=== PATIENT | male | born 1960 | race Caucasian/White ===

== ENCOUNTER 2018-12-09 09:48 | Day surgery (SDC) | payer OTHER ==
[~2018-12-09] VITALS: Ht 180.3 cm; Wt 72.8 kg
[2018-12-09] VITALS (8 sets, daily range): BP systolic 102–119; BP diastolic 65–80; PULSE 59–77; RESP 16–29; Ht 180.3 cm; Wt 72.8 kg
[~2018-12-09 09:48] MED LIST: CYCLOPENTOLATE 1% 2 ML OPH RIGHT EYE SCH; LORA1TAB54 PO; MOXIFLOXACIN 0.5% 3 ML OPH RIGHT EYE SCH; PHENYLephrine 2.5% 15 ML OPH RIGHT EYE SCH; PROPARACAINE 0.5% 15 ML OPH RIGHT EYE SCH; TROPICAMIDE 1% 15 ML OPH RIGHT EYE SCH; VIGA RIGHT EYE
[2018-12-09] MEDS ORDERED: MIDAZOLAM 1 MG/ML 2 ML INJ ONE (11:15)
--- NOTE | 2018-12-09 11:17 | PREAC ---
Date/Time of Note Date/Time of Note DATE: 12/09/18 TIME: 11:17 Anesthesia Eval and Record Evaluation Time Pre-Procedure Interview DATE: 12/09/18 TIME: 11:17 Age 58 Sex male NPO: 8 hrs Preoperative diagnosis RIGHT CATARACT Planned procedure RIGHT CATARACT EXTRACTION WITH IOL Past Medical History Past Medical History: None Surgery & Anesthesia Issues No known issue Meds Anticoagulation: No Beta Jean within 24 hr: No Reason Beta Jean not given: Pt. not on B-Jean Reported Medications Loratadine/Pseudoephedrine* (Claritin-D* 12 Hr) 5-120 Mg Tab.er.12h, 1 TAB PO Q12, #60 TAB.SA 12/09/18 Current Medications Proparacaine HCl (Alcaine 0.5%) 1 drop PRE-OP RIGHT EYE ; Start 12/09/18 at 06:00 Cyclopentolate HCl (Ak-Pentolate 1% Oph) 1 drop Q10 MIN X 3 RIGHT EYE ; Start 12/09/18 at 06:00 Phenylephrine HCl (Ak-Dilate 2.5%) 1 drop Q10 MIN X 3 RIGHT EYE ; Start 12/09/18 at 06:00 Tropicamide (Mydriacyl 1%) 1 drop Q10 MIN X3 RIGHT EYE ; Start 12/09/18 at 06:00 Moxifloxacin HCl (Vigamox) 1 drop Q10 MIN X 3 RIGHT EYE ; Start 12/09/18 at 06:00 Meds reviewed: Yes Allergies Coded Allergies: No Known Allergy (Unverified , 12/09/18) Allergies Reviewed: Yes Labs/Studies Labs Reviewed: Reviewed by anesthesiologist test: N/A Studies: ECG, CXR Pre-procedure Exam Last vitals Vital Signs Date Temp Pulse Resp B/P (MAP) Pulse Ox O2 O2 Flow FiO2 Time Delivery Rate 12/09/18 97.9 66 16 119/72 99 Room Air 11:02 (88) Airway: Adequate mouth opening Mallampati: Mallampati II Teeth: Normal Lung: Normal Heart: Normal ASA Physical Status ASA physical status: 1 Emergency: None Planned Anesthetic General/MAC: MAC Pre-operative Attestations Prior to commencing anesthesia and surgery, the patient was re-evaluated, there was verification of: *The patient's identity *The results of appropriate recent lab work and preoperative vital signs *The above evaluation not changing prior to induction *Anesthetic plan, risk benefits, alternative and complications discussed with patient/family; questions answered; patient/family understands, accepts and wishes to proceed. JOEL CARROLL Dec 09, 2018 11:17
[2018-12-09] MEDS ORDERED: BSS PLUS 500 ML + VANCO 10MG, GENT 4 MG, EPI 0.25 MG IRR SCH ×4 (12:30)
[2018-12-09] MEDS ORDERED: LIDOCAINE 1% (MPF) 10 ML INJ ONE (12:56)
[2018-12-09] MEDS ORDERED: NA HYALURONATE/CHONDROITIN 0.5 ML SYG ONE (12:56)
--- NOTE | 2018-12-09 14:13 | PAC ---
Date/Time of Note Date/Time of Note DATE: 12/09/18 TIME: 14:13 Post-Anesthesia Notes Post-Anesthesia Note Last documented vital signs Vital Signs Date Temp Pulse Resp B/P (MAP) Pulse Ox O2 O2 Flow FiO2 Time Delivery Rate 12/09/18 97.9 66 16 119/72 99 Room Air 11:02 (88) Activity: WNL Respiratory function: WNL Cardiovascular function: WNL Mental status: Baseline Pain reasonably controlled: Yes Hydration appropriate: Yes Nausea/Vomiting absent: Yes JOEL CARROLL Dec 09, 2018 14:13
--- NOTE | 2018-12-09 16:24 | OPR ---
Date/Time of Note Date/Time of Note DATE: 12/09/18 TIME: 16:22 Operative Report Free Text/Dictation OPERATIVE SUMMARY Pre op dx- cataract right eye post op dx -same SURGEON - samir frias EBL; minimal PROCEDURE; cataract removal by phakoemulsification with intraocular lens implant RIGHT eye intraocular lens implant: b&l [id number] +19.50d anaesthesia: topical, mac, iv sedation complications: none PROCEDURE NOTE A full discussion with pt regarding alternatives, risks, benefits and possible complications were discussed with the pt. including loss of vision, loss of the eye, infection, rd, glaucoma, hypotony, irregular ocular anatomy, wound leak, displacement of intraocular lens, improper IOL power and other problems. also risks of anaeshesia including brain damage, stroke, coma and . the pt appeared to understand and decided to proceed with the surgery. pt was prepped and draped in ususal manner for intraocular surgery. two stab incisions were made at 12 and 6 oclock postion. intraocular pf lidcaine was instilled. a keratome was then used to enter the eye at the temporal limbus. a curved cystotome on viscoelastic was used to create a curvilinear capsulorhexis. the flap was removed with utrata forcepts. hydrodilenation and hydrodisection was done with bss. using the divide an conquer method, the lens nucleus was rem jerome. bimanual irrigtion and suction was then use to remove the cortex. the capsule was inflated with viscoelastic and the lens was injected into the capsular bag. the proper orientation of the lens was confirmed. the lens was rotated 360 degree to assure proper capsular placement. the viscoelastic was removed, and 10-0 interrupted sutures secured the wound. the wound was checked f or leaks and none were found. pt tolerated procedure wel. no complications were encounterd. to post ananesthesia in good condition. MD LILLY Hyman WARREN J MD Dec 09, 2018 16:24
== END 2018-12-09 15:40 | disposition home or self-care (01) ==
LOC: SDS 09:48
PROVIDERS: ATTEND Ophthalmology
DX: H26.8 Other specified cataract (principal)
CPT/HCPCS: 66984; J0171; J1580; J2250; J3370; V2632; Z7512; Z7610

== ENCOUNTER 2019-01-20 05:28 | Day surgery (SDC) | payer OTHER ==
[2019-01-20] VITALS (13 sets, daily range): BP systolic 77–107; BP diastolic 35–75; PULSE 36–64; RESP 16–20; Ht 177.8 cm; Wt 70.4 kg
[~2019-01-20] VITALS: Ht 177.8 cm; Wt 70.4 kg
[~2019-01-20 05:28] MED LIST changes: -CYCLOPENTOLATE 1% 2 ML OPH RIGHT EYE SCH; +LORA-186 PO; -LORA1TAB54 PO; -MOXIFLOXACIN 0.5% 3 ML OPH RIGHT EYE SCH; -PHENYLephrine 2.5% 15 ML OPH RIGHT EYE SCH; -PROPARACAINE 0.5% 15 ML OPH RIGHT EYE SCH; -TROPICAMIDE 1% 15 ML OPH RIGHT EYE SCH
[2019-01-20] MEDS ORDERED: LACTATED RINGER'S 1,000 ML IV SCH (06:00)
[2019-01-20] MEDS ORDERED: PROPARACAINE 0.5% 15 ML OPH OPER SCH (06:00)
[2019-01-20] MEDS ORDERED: CYCLOPENTOLATE 1% 2 ML OPH OPER SCH (06:00)
[2019-01-20] MEDS ORDERED: MOXIFLOXACIN 0.5% 3 ML OPH OPER SCH (06:00)
[2019-01-20] MEDS ORDERED: TROPICAMIDE 1% 15 ML OPH OPER SCH (06:00)
[2019-01-20] MEDS ORDERED: PHENYLephrine 2.5% 15 ML OPH OPER SCH (06:00)
[2019-01-20] MEDS ORDERED: BSS PLUS 500 ML + VANCO 10MG, GENT 4 MG, EPI 0.25 MG IRR SCH ×4 (07:30)
[2019-01-20] MEDS ORDERED: FENTAnyl 50 MCG/ML VIAL ONE (07:36)
[2019-01-20] MEDS ORDERED: MIDAZOLAM 1 MG/ML 2 ML INJ ONE (07:36)
[2019-01-20] MEDS ORDERED: MEPERIDINE 25 MG INJ IV PRN (08:00)
[2019-01-20] MEDS ORDERED: OXYCODONE/ACETAMINOPHEN (5/325) TAB PO PRN ×2 (08:00)
[2019-01-20] MEDS ORDERED: ONDANSETRON 4 MG INJ IV PRN (08:00)
[2019-01-20] MEDS ORDERED: FENTAnyl 50 MCG/ML VIAL IV PRN ×3 (08:00)
[2019-01-20] MEDS ORDERED: LIDOCAINE 1% (MPF) 5 ML VIAL INJ ONE (08:50)
[2019-01-20] MEDS ORDERED: TETRACAINE 0.5% 4 ML OPH LEFT EYE ONE (08:50)
[2019-01-20] MEDS ORDERED: EPHEDrine 25 MG/5 ML SYG ONE (10:32)
[2019-01-20] MEDS ORDERED: EPHEDrine 25 MG/5 ML SYG IV PRN (11:00)
[2019-01-20] MEDS ORDERED: LACTATED RINGER'S 250 ML IV ONE (11:00)
== END 2019-01-20 12:36 | disposition home or self-care (01) ==
LOC: SDS 05:28
PROVIDERS: ATTEND Ophthalmology
DX: H26.9 Unspecified cataract (principal)
CPT/HCPCS: 66984; J0171; J1580; J2250; J2405; J3010; J3370; V2632; Z7512; Z7610